=== PATIENT | male | born 1985 | race Caucasian/White ===

== ENCOUNTER 2021-04-12 16:16 | Emergency (ER) | payer OTHER ==
[~2021-04-12] VITALS: Ht 157.5 cm; Wt 81.6 kg
[2021-04-12 16:22] VITALS: BP 137/78
--- NOTE | 2021-04-12 16:41 | NUR ---
ER PA AT BEDSIDE
--- NOTE | 2021-04-12 16:51 | NUR ---
35 Y/O MALE BIB SELF. PATIENT PRESENTS TO ED WITH LESION TO BACK OF NECK. PT STATES HE HAS HAS THIS LESION FOR 4 YEARS BUT TYREE THESE PAST 4 DAYS HAS IT BEEN "BOTHERING HIM." DENIES N/V/D; SKIN IS PINK/WARM/DRY; AAOX4 WITH EVEN AND STEADY GAIT; LUNGS CLEAR BL; HR EVEN AND REGULAR; PT DENIES ANY FEVER, CP, SOB, OR COUGH AT THIS TIME; PATIENT STATES PAIN OF 0/10 AT THIS TIME; VSS; PATIENT POSITIONED FOR COMFORT; HOB ELEVATED; BEDRAILS UP X1; BED DOWN. ER PA AT BEDSIDE PERFORMING US. DENIES PMH NKA NO MEDS
[2021-04-12] MEDS ORDERED: LIDOCAINE MPF 1% 10 MG/ML VIAL INJ ONE ×2 (16:55→17:05)
[2021-04-12] MEDS ORDERED: IBUPROFEN 600 MG TAB PO ONE (16:55)
--- NOTE | 2021-04-12 17:30 | NUR ---
ER PA AT BEDSIDE PERFORMING PROCEDURE
[2021-04-12] MEDS ORDERED: IBUP-2213 PO (17:46)
[2021-04-12] MEDS ORDERED: CEPH-588 PO (17:46)
--- NOTE | 2021-04-12 17:51 | NUR ---
Patient discharged with v/s stable. Written and verbal after care instructions given and explained. Patient alert, oriented and verbalized understanding of instructions. Ambulatory with steady gait. All questions addressed prior to discharge. ID band removed. Patient advised to follow up with PMD. Rx of KEFLEX AND IBUPROFEN given. Patient educated on indication of medication including possible reaction and side effects. Opportunity to ask questions provided and answered.
== END 2021-04-12 17:51 | disposition home or self-care (01) ==
LOC: MED 16:16
DX: L98.9 Disorder of the skin and subcutaneous tissue, unspecified (principal); R03.0 Elevated blood-pressure reading, without diagnosis of hypertension; Z79.899 Other long term (current) drug therapy
CPT/HCPCS: 10060; 99284; J2001

== ENCOUNTER 2021-04-14 11:51 | Emergency (ER) | payer OTHER ==
[~2021-04-14] VITALS: Ht 160 cm; Wt 83.5 kg
[~2021-04-14 11:51] MED LIST: CEPH-588 PO; IBUP-2213 PO
[2021-04-14 12:08] VITALS: BP 121/85
--- NOTE | 2021-04-14 13:12 | NUR ---
PT SEEN AND D/C BY CAMERNO CHEN, NO NURSING INTERVENTIONS PROVIDED
--- NOTE | 2021-04-14 13:13 | NUR ---
Patient discharged with v/s stable. Written and verbal after care instructions ABOUT WOUND CARE given and explained. Patient verbalized understanding. Ambulatory with steady gait. All questions addressed prior to discharge. Advised to follow up with PMD.
== END 2021-04-14 13:13 | disposition home or self-care (01) ==
LOC: MED 11:51
DX: L02.11 Cutaneous abscess of neck (principal); Z48.00 Encounter for change or removal of nonsurgical wound dressing
CPT/HCPCS: 99281

== ENCOUNTER 2021-09-22 14:12 | Emergency (ER) | payer OTHER ==
[~2021-09-22] VITALS: Ht 160 cm; Wt 82.7 kg
[2021-09-22 14:20] VITALS: BP 117/76
[2021-09-22] MEDS ORDERED: NAPR-54 PO (15:03)
[2021-09-22] MEDS ORDERED: BACI1PAC6 TP (15:04)
[2021-09-22] MEDS ORDERED: KETOROLAC 30 MG/ML VIAL IM ONE (15:05)
--- NOTE | 2021-09-22 15:12 | NUR ---
IM MEDS GIVEN-NADR AT THIS TIME
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
--- NOTE | 2021-09-22 15:26 | NUR ---
SLING TO RIGHT SHOULDER/ARM ON PMS WNL, CAP REFILL-IMM
[2021-09-22 15:38] VITALS: BP 112/68
--- NOTE | 2021-09-22 15:40 | NUR ---
Patient discharged with v/s stable. Written and verbal after care instructions given and explained. Patient alert, oriented and verbalized understanding of instructions. Ambulatory with steady gait. All questions addressed prior to discharge. ID band removed. Patient advised to follow up with PMD. Rx of BACITRACIN OINT, NAPROSYN given. Patient educated on indication of medication including possible reaction and side effects. Opportunity to ask questions provided and answered.
== END 2021-09-22 15:38 | disposition home or self-care (01) ==
LOC: MED 14:12
DX: S40.011A Contusion of right shoulder, initial encounter (principal); Z79.899 Other long term (current) drug therapy; V89.9XXA Person injured in unspecified vehicle accident, initial encounter; Y93.89 Activity, other specified; Y92.89 Other specified places as the place of occurrence of the external cause; Y99.8 Other external cause status
CPT/HCPCS: 73030; 96372; 99283; J1885

== ENCOUNTER 2021-12-16 12:06 | Emergency (ER) | payer OTHER ==
[~2021-12-16] VITALS: Ht 157.5 cm; Wt 78.0 kg
[~2021-12-16 12:06] MED LIST changes: +BACI1PAC6 TP; +NAPR-54 PO
[2021-12-16 12:23] VITALS: BP 138/70
--- NOTE | 2021-12-16 14:16 | NUR ---
CAMERON GILMORE AT BEDSIDE FOR EVALUATION
[2021-12-16] MEDS ORDERED: IBUPROFEN 600 MG TAB PO ONE (14:30)
--- NOTE | 2021-12-16 15:04 | NUR ---
TAKEN TO CT VIA W/C
--- NOTE | 2021-12-16 15:53 | NUR ---
Dr Owen at bedside for evaluation
--- NOTE | 2021-12-16 16:33 | NUR ---
PT PLACED IN RIGHT VELCRO WRIST SPLINT. CMS WNL BEFORE AND AFTER.
[2021-12-16] MEDS ORDERED: CHLO473S62 PO (16:39)
[2021-12-16] MEDS ORDERED: BACI1PAC6 TP (16:39)
[2021-12-16] MEDS ORDERED: AMOX500C25 PO (16:39)
[2021-12-16] MEDS ORDERED: IBUP-2213 PO (16:39)
[2021-12-16 16:50] VITALS: BP 120/68
--- NOTE | 2021-12-16 16:50 | NUR ---
Patient discharged with v/s stable. Written and verbal after care instructions given. Patient alert, oriented and verbalized understanding of instructions. Ambulatory with steady gait. All questions addressed prior to discharge. ID band removed. Patient advised to follow up with PMD. Rx of Bacitracin, Amoxicillin, Ibuprofen and Peridex given. Opportunity to ask questions provided and answered.
== END 2021-12-16 16:50 | disposition home or self-care (01) ==
LOC: MED 12:06
DX: S63.8X1A Sprain of other part of right wrist and hand, initial encounter (principal); S00.511A Abrasion of lip, initial encounter; S09.93XA Unspecified injury of face, initial encounter; Z79.899 Other long term (current) drug therapy; V87.8XXA Person injured in other specified noncollision transport accidents involving motor vehicle (traffic), initial encounter; Y93.55 Activity, bike riding; Y92.89 Other specified places as the place of occurrence of the external cause; Y99.8 Other external cause status
CPT/HCPCS: 70110; 73110; 73130; 90471; 90715; 99284